=== PATIENT | male | born 1960 | race Two or more races ===

== ENCOUNTER 2024-04-27 18:29 | Inpatient (IN) | payer MEDICAID, OTHER ==
[~2024-04-27] VITALS: Ht 167.6 cm; Wt 67.3 kg
[2024-04-27] MEDS ORDERED: VANCOMYCIN PER PHARMACY 0 MG IV SCH (19:15)
[2024-04-27] MEDS: ACETAMINOPHEN 325 MG TAB PO ONE (19:24)
[2024-04-27] MEDS: PIPERACILLIN-TAZOB 3.375GM 100 ML IV ONE (19:24)
[2024-04-27 19:54] LABS: Basophils # (auto) 0 10 ^3/uL (0-0.2); Basophils % (auto) 0.2 % (0.0-2.0); Eosinophils # (auto) 0 10 ^3/uL (0-0.8); Eosinophils % (auto) 0.1 % (0.0-7.0); Hematocrit 28.8 % (41.0-53.0); Hemoglobin 9.9 g/dL (13.5-17.5); Lymphocytes % (auto) 4.9 % (10.0-50.0); Mean Corpuscular Hemoglobin 30.8 pg (28.0-32.0); Mean Corpuscular Hgb Conc. 34.5 g/dL (32.0-36.0); Mean Corpuscular Volume 89.3 fL (80.0-100.0); Monocytes # (auto) 1.5 10 ^3/uL (0-1.3); Monocytes % (auto) 6.9 % (0.0-12.0); Neutrophils # (auto) 18.9 10 ^3/uL (1.6-8.6); Neutrophils % (auto) 87.9 % (37.0-80.0); Red Blood Cells 3.23 10^6/uL (4.5-5.90); White Blood Cell 21.5 10^3/uL (4.4-10.8)
[2024-04-27 20:17] LABS: Alanine Aminotransferase 15 U/L (7-40); Alkaline Phosphatase 114 U/L (46-116); Anion Gap 8 (5-15); Aspartate Aminotransferase 16 U/L (13-40); BUN/Creatinine Ratio 15.8 (10.0-20.0); Blood Urea Nitrogen 25 mg/dL (9-23); Calcium 9.4 mg/dL (8.7-10.4); Carbon Dioxide 27 mmol/L (20-30); Chloride 95 mmol/L (98-107); Glucose 247 mg/dL (74-106); Potassium 4.1 mmol/L (3.5-5.1); Sodium 130 mmol/L (136-145)
[2024-04-27 20:18] LABS: Bilirubin, Total 0.7 mg/dL (0.2-1.0); Total Protein 7.8 g/dL (5.7-8.2)
[2024-04-27 20:31] LABS: Albumin 3.7 g/dL (3.2-4.8)
[2024-04-27] MEDS ORDERED: DEXTROSE (50%) 50ML SYRG IV PRN (20:45)
[2024-04-27] MEDS ORDERED: ONDANSETRON HCL 4 MG/2 ML VIAL IV PRN (20:45)
[2024-04-27] MEDS ORDERED: NITROGLYCERIN 0.4 MG SL TAB SL PRN (21:00)
[2024-04-27] MEDS ORDERED: MORPHINE SULFATE INJ 2 MG/ml SYRG IV PRN (21:00)
[2024-04-27] MEDS: VANCOMYCIN 1,500 MG in D5W 5% 250 ML IV ONE (21:28)
[2024-04-27] MEDS: SODIUM CHLORIDE 0.9% 1,000 ML IV SCH (21:29)
[2024-04-27] MEDS: PIPERACILLIN-TAZOB 3.375GM 100 ML IV SCH (22:00)
[2024-04-27] MEDS: ASCORBIC ACID 500 MG TAB PO SCH (22:07)
[2024-04-27 22:31] VITALS: PULSE 80; RESP 16; O2SAT 98
[2024-04-27 22:52] VITALS: BP 147/74; PULSE 81; PULSE 98; RESP 18; TEMP 98.1; O2SAT 98
[2024-04-27 23:14] VITALS: BP 147/74; PULSE 81; RESP 18; TEMP 98.1; O2SAT 98
[2024-04-28] VITALS (8 sets, daily range): BP systolic 130–153; BP diastolic 64–85; PULSE 73–88; RESP 18–20; TEMP 97.3–100.5; O2SAT 92–99
[2024-04-28] MEDS: ACCU-CHEK COMFORT CURVE STRIP VI SCH ×2 (00:10→18:00)
[2024-04-28] MEDS: InsuLIN REG 1unit/0.01ml Soln (100units/ml) SC SCH ×2 (00:15→18:41)
[2024-04-28 05:48] LABS: Basophils # (auto) 0 10 ^3/uL (0-0.2); Basophils % (auto) 0.2 % (0.0-2.0); Eosinophils # (auto) 0.1 10 ^3/uL (0-0.8); Eosinophils % (auto) 0.7 % (0.0-7.0); Hematocrit 24.8 % (41.0-53.0); Hemoglobin 8.8 g/dL (13.5-17.5); Lymphocytes # (auto) 1.4 10 ^3/uL (0.4-5.4); Mean Corpuscular Hemoglobin 31.3 pg (28.0-32.0); Mean Corpuscular Hgb Conc. 35.5 g/dL (32.0-36.0); Mean Corpuscular Volume 88.1 fL (80.0-100.0); Monocytes # (auto) 1.6 10 ^3/uL (0-1.3); Monocytes % (auto) 8.9 % (0.0-12.0); Neutrophils # (auto) 14.4 10 ^3/uL (1.6-8.6); Neutrophils % (auto) 82.2 % (37.0-80.0); Red Blood Cells 2.82 10^6/uL (4.5-5.90); Red Cell Distribution Width 11.6 % (11.8-14.3); White Blood Cell 17.5 10^3/uL (4.4-10.8)
[2024-04-28 06:06] LABS: Alanine Aminotransferase 13 U/L (7-40); Albumin 3.3 g/dL (3.2-4.8); Alkaline Phosphatase 95 U/L (46-116); Anion Gap 9 (5-15); Aspartate Aminotransferase 13 U/L (13-40); Blood Urea Nitrogen 29 mg/dL (9-23); Calcium 8.8 mg/dL (8.7-10.4); Carbon Dioxide 27 mmol/L (20-30); Chloride 99 mmol/L (98-107); Glucose 89 mg/dL (74-106); Potassium 3.3 mmol/L (3.5-5.1)
[2024-04-28 06:07] LABS: Bilirubin, Total 0.5 mg/dL (0.2-1.0); Total Protein 6.8 g/dL (5.7-8.2)
[2024-04-28 06:28] LABS: Sodium 135 mmol/L (136-145)
[2024-04-28] MEDS: POTASSIUM EFFERVESENT TAB 25 MEQ PO ONE (08:22)
[2024-04-28] MEDS: ASPirin 81 mg TAB PO SCH (08:23)
[2024-04-28] MEDS: MULTIPLE VITAMIN TAB PO SCH (08:23)
[2024-04-28 08:42] LABS: % Iron Saturation 16.3 % (20-55)
[2024-04-28 08:52] LABS: INR 1.16 (0.9-1.15); Partial Thromboplastin Time 32.2 SEC (24.5-34.5); Prothrombin Time 12.2 sec (9.3-11.8)
[2024-04-28 09:25] LABS: Erythrocyte Sedimentation Rate 129 mm/hr (0-20)
[2024-04-28] MEDS ORDERED: ZINC SULFATE 220mg CAP or TAB PO SCH (10:00)
[2024-04-28] MEDS: SODIUM CHLORIDE 0.9% 1,000 ML IV SCH (11:57)
[2024-04-28 12:16] LABS: Triglycerides 85 mg/dL (< 150)
[2024-04-28 12:17] LABS: LDL Cholesterol 71 mg/dL (< 100)
[2024-04-28 12:18] LABS: Cholesterol 115 mg/dL (< 200); HDL Cholesterol 26 mg/dL (40-59)
[2024-04-28] MEDS: hydrALAZINE HCL 20 MG/ML VL IV PRN (12:51)
[2024-04-28] MEDS ORDERED: DEXTROSE (50%) 50ML SYRG IV PRN (13:00)
[2024-04-28] MEDS: ACETAMINOPHEN 325 MG TAB PO PRN (16:13)
[2024-04-29] VITALS (9 sets, daily range): BP systolic 17–143; BP diastolic 54–74; PULSE 66–98; RESP 17–21; TEMP 97.3–100.1; O2SAT 93–100
[2024-04-29 04:48] LABS: Urine Amorphous Crystal FEW /hpf (None Seen); Urine Bacteria FEW /hpf (None Seen); Urine Blood 1+ /uL (Negative); Urine Clarity Turbid (Clear); Urine Color Colorless (Yellow); Urine Protein, UAD 1+ (Negative); Urine Specific Gravity 1.012 (1.001-1.035); Urine Urobilinogen Normal (Negative); Urine WBC 2 /hpf (0 - 3); Urine pH 5.5 (5.0-9.0)
[2024-04-29] MEDS: DOCUSATE SOD 100 MG CAP PO PRN (05:35)
[2024-04-29 06:30] LABS: Basophils # (auto) 0 10 ^3/uL (0-0.2); Basophils % (auto) 0.2 % (0.0-2.0); Eosinophils # (auto) 0.1 10 ^3/uL (0-0.8); Eosinophils % (auto) 0.6 % (0.0-7.0); Hematocrit 24.8 % (41.0-53.0); Hemoglobin 8.9 g/dL (13.5-17.5); Lymphocytes # (auto) 1.1 10 ^3/uL (0.4-5.4); Lymphocytes % (auto) 7.7 % (10.0-50.0); Mean Corpuscular Hemoglobin 31.3 pg (28.0-32.0); Mean Corpuscular Hgb Conc. 35.7 g/dL (32.0-36.0); Mean Corpuscular Volume 87.6 fL (80.0-100.0); Monocytes # (auto) 1.3 10 ^3/uL (0-1.3); Monocytes % (auto) 8.4 % (0.0-12.0); Neutrophils # (auto) 12.4 10 ^3/uL (1.6-8.6); Neutrophils % (auto) 83.1 % (37.0-80.0); Red Blood Cells 2.83 10^6/uL (4.5-5.90); Red Cell Distribution Width 12.1 % (11.8-14.3); White Blood Cell 14.9 10^3/uL (4.4-10.8)
[2024-04-29 06:46] LABS: Chloride 100 mmol/L (98-107); Sodium 134 mmol/L (136-145)
[2024-04-29 06:47] LABS: Anion Gap 12 (5-15); Calcium 8.7 mg/dL (8.7-10.4); Carbon Dioxide 22 mmol/L (20-30)
[2024-04-29 06:52] LABS: Blood Urea Nitrogen 30 mg/dL (9-23); Glucose 158 mg/dL (74-106); Triglycerides 106 mg/dL (< 150)
[2024-04-29 06:53] LABS: LDL Cholesterol 67 mg/dL (< 100)
[2024-04-29 06:54] LABS: Cholesterol 112 mg/dL (< 200); HDL Cholesterol 20 mg/dL (40-59)
[2024-04-29] MEDS: INSULIN LANTUS (GLARGINE) 1 /0.01ml (100units/ml) SC SCH (08:00)
[2024-04-29] MEDS: SODIUM CHLORIDE 0.9% 1,000 ML IV SCH (09:34)
[2024-04-29] MEDS ORDERED: MIDAZOLAM HCL 2MG/2ML 2ml VIAL (1mg/ml) ONE (12:30)
[2024-04-29] MEDS ORDERED: fentaNYL CITRATE 100 MCG/2 ML VL ONE (12:30)
[2024-04-29] MEDS: BUPIVACAINE 0.5% MPF INJ 30ML SDV IJ ONE (12:59)
[2024-04-29] MEDS ORDERED: ONDANSETRON HCL 4 MG/2 ML VIAL ONE (13:15)
[2024-04-29] MEDS ORDERED: PROPOFOL 10 MG/ML 20 ML IV ONE (13:16)
[2024-04-29] MEDS ORDERED: ePHEDrine SULFATE 50 MG/ML AMP ONE (13:16)
[2024-04-29] MEDS ORDERED: LIDOCAINE 2% (LOCAL ANESTH.) PF 5ml SDV ONE (13:16)
[2024-04-29] MEDS ORDERED: HYDROmorphone HCL 2 MG/ML VL/or syr IV PRN (13:45)
[2024-04-29] MEDS: ONDANSETRON HCL 4 MG/2 ML VIAL IV ONE (13:45)
[2024-04-29] MEDS: VANCOMYCIN 500 MG in D5W 5% 100 ML IV ONE (15:15)
[2024-04-29] MEDS: HYDROcodone-ACET 5/325MG TAB PO PRN (21:09)
[2024-04-30 01:00] VITALS: BP 144/74; PULSE 73; RESP 18; TEMP 99.2; O2SAT 93
[2024-04-30] MEDS: INSULIN LANTUS (GLARGINE) 1 /0.01ml (100units/ml) SC SCH (07:02)
[2024-04-30 07:26] LABS: Basophils # (auto) 0 10 ^3/uL (0-0.2); Basophils % (auto) 0.3 % (0.0-2.0); Eosinophils # (auto) 0.1 10 ^3/uL (0-0.8); Eosinophils % (auto) 0.7 % (0.0-7.0); Hematocrit 25.4 % (41.0-53.0); Hemoglobin 8.8 g/dL (13.5-17.5); Lymphocytes # (auto) 1.1 10 ^3/uL (0.4-5.4); Lymphocytes % (auto) 9.4 % (10.0-50.0); Mean Corpuscular Hemoglobin 30.6 pg (28.0-32.0); Mean Corpuscular Hgb Conc. 34.7 g/dL (32.0-36.0); Mean Corpuscular Volume 88.1 fL (80.0-100.0); Monocytes # (auto) 1.3 10 ^3/uL (0-1.3); Monocytes % (auto) 11.2 % (0.0-12.0); Neutrophils # (auto) 9.2 10 ^3/uL (1.6-8.6); Neutrophils % (auto) 78.4 % (37.0-80.0); Nucleated Red Blood Cells % 0.1 %; Red Blood Cells 2.89 10^6/uL (4.5-5.90); Red Cell Distribution Width 11.9 % (11.8-14.3); White Blood Cell 11.7 10^3/uL (4.4-10.8)
[2024-04-30 07:39] LABS: Anion Gap 9 (5-15); Carbon Dioxide 24 mmol/L (20-30); Chloride 102 mmol/L (98-107); Sodium 135 mmol/L (136-145)
[2024-04-30 07:40] LABS: Calcium 8.6 mg/dL (8.7-10.4)
[2024-04-30 07:45] LABS: BUN/Creatinine Ratio 11.2 (10.0-20.0); Blood Urea Nitrogen 26 mg/dL (9-23); Glucose 204 mg/dL (74-106)
[2024-04-30 08:54] VITALS: BP 134/59; PULSE 94; RESP 18; TEMP 98; O2SAT 94
[2024-04-30] MEDS: VANCOMYCIN 500 MG in D5W 5% 100 ML IV ONE (10:42)
[2024-04-30] MEDS: MULTIPLE VITAMINS W/ MINERALS TAB PO SCH (10:42)
[2024-04-30] MEDS: SODIUM CHLORIDE 0.9% 1,000 ML IV SCH (10:43)
[2024-04-30] MEDS: amLODIPine BESYLATE 5 MG TAB PO SCH (10:44)
[2024-04-30] MEDS: cefTRIAXone 1GM/50ML D5W 50 ML IV SCH (12:03)
[2024-04-30] MEDS: SODIUM FERR GLUC 62.5MG/5ML 110 ML IV SCH (12:46)
[2024-04-30 13:00] VITALS: BP 142/66; PULSE 94; RESP 18; TEMP 98; O2SAT 97
[2024-04-30 17:00] VITALS: BP 124/56; PULSE 91; RESP 18; TEMP 98; O2SAT 96
[2024-04-30 21:00] VITALS: BP 129/66; PULSE 84; RESP 18; TEMP 98; O2SAT 95
[2024-05-01 01:00] VITALS: BP 120/60; PULSE 79; RESP 18; TEMP 98.1; O2SAT 97
[2024-05-01] MEDS: AMPICILLIN & SULBACTAM SODIUM 3 GM in SODIUM CHL 0.9% 100 ML IV SCH (02:24)
[2024-05-01 05:00] VITALS: BP 142/65; PULSE 93; RESP 18; TEMP 97.9; O2SAT 97
[2024-05-01 06:30] LABS: Anion Gap 7 (5-15); Carbon Dioxide 27 mmol/L (20-30); Chloride 105 mmol/L (98-107); Potassium 4.6 mmol/L (3.5-5.1); Sodium 139 mmol/L (136-145)
[2024-05-01 06:31] LABS: Calcium 8.3 mg/dL (8.7-10.4)
[2024-05-01 06:36] LABS: BUN/Creatinine Ratio 11.5 (10.0-20.0); Blood Urea Nitrogen 25 mg/dL (9-23); Glucose 146 mg/dL (74-106)
[2024-05-01 06:46] LABS: Basophils # (auto) 0.1 10 ^3/uL (0-0.2); White Blood Cell 10.1 10^3/uL (4.4-10.8)
[2024-05-01 06:56] LABS: Basophils % (auto) 0.7 % (0.0-2.0); Eosinophils # (auto) 0.1 10 ^3/uL (0-0.8); Eosinophils % (auto) 1.4 % (0.0-7.0); Hematocrit 22.1 % (41.0-53.0); Hemoglobin 7.9 g/dL (13.5-17.5); Lymphocytes # (auto) 1.4 10 ^3/uL (0.4-5.4); Lymphocytes % (auto) 13.5 % (10.0-50.0); Mean Corpuscular Hemoglobin 31.6 pg (28.0-32.0); Mean Corpuscular Hgb Conc. 35.8 g/dL (32.0-36.0); Mean Corpuscular Volume 88.1 fL (80.0-100.0); Monocytes # (auto) 1.1 10 ^3/uL (0-1.3); Monocytes % (auto) 11.2 % (0.0-12.0); Neutrophils # (auto) 7.4 10 ^3/uL (1.6-8.6); Neutrophils % (auto) 73.2 % (37.0-80.0); Red Blood Cells 2.51 10^6/uL (4.5-5.90); Red Cell Distribution Width 11.9 % (11.8-14.3)
[2024-05-01 08:57] VITALS: BP 142/70; PULSE 96; RESP 16; TEMP 98.7; O2SAT 98
[2024-05-01] MEDS: amLODIPine BESYLATE 5 MG TAB PO SCH (10:00)
[2024-05-01] MEDS ORDERED: LIDOCAINE 2% (LOCAL ANESTH.) PF 5ml SDV ONE (10:08)
[2024-05-01] MEDS ORDERED: fentaNYL CITRATE 100 MCG/2 ML VL ONE (10:08)
[2024-05-01] MEDS ORDERED: ONDANSETRON HCL 4 MG/2 ML VIAL ONE (10:08)
[2024-05-01] MEDS ORDERED: PROPOFOL 10 MG/ML 20 ML IV ONE (10:08)
[2024-05-01] MEDS ORDERED: MIDAZOLAM HCL 2MG/2ML 2ml VIAL (1mg/ml) ONE (10:08)
[2024-05-01] MEDS: BUPIVACAINE 0.5% P/F INJ 10 ML VIAL ONE (10:19)
[2024-05-01] MEDS ORDERED: HYDROmorphone HCL 2 MG/ML VL/or syr IV PRN (10:45)
[2024-05-01 12:39] VITALS: BP 151/76; PULSE 85; RESP 17; TEMP 98; O2SAT 97
[2024-05-01 17:01] VITALS: BP 157/85; PULSE 93; RESP 16; TEMP 98.5; O2SAT 97
[2024-05-01] MEDS: SODIUM CHLORIDE 0.9% 1,000 ML IV SCH (17:03)
[2024-05-01 18:02] LABS: Basophils # (auto) 0.1 10 ^3/uL (0-0.2); Basophils % (auto) 0.6 % (0.0-2.0); Eosinophils # (auto) 0.1 10 ^3/uL (0-0.8); Eosinophils % (auto) 1.5 % (0.0-7.0); Hematocrit 24.8 % (41.0-53.0); Hemoglobin 8.9 g/dL (13.5-17.5); Lymphocytes # (auto) 1.2 10 ^3/uL (0.4-5.4); Lymphocytes % (auto) 13.5 % (10.0-50.0); Mean Corpuscular Hemoglobin 31.8 pg (28.0-32.0); Mean Corpuscular Hgb Conc. 35.8 g/dL (32.0-36.0); Mean Corpuscular Volume 88.6 fL (80.0-100.0); Monocytes % (auto) 11.3 % (0.0-12.0); Neutrophils # (auto) 6.5 10 ^3/uL (1.6-8.6); Neutrophils % (auto) 73.1 % (37.0-80.0); Red Cell Distribution Width 11.8 % (11.8-14.3); White Blood Cell 8.9 10^3/uL (4.4-10.8)
[2024-05-01 18:13] LABS: Anion Gap 6 (5-15); Carbon Dioxide 27 mmol/L (20-30); Chloride 106 mmol/L (98-107); Potassium 4.1 mmol/L (3.5-5.1); Sodium 139 mmol/L (136-145)
[2024-05-01 18:14] LABS: Calcium 8.5 mg/dL (8.7-10.4)
[2024-05-01 18:19] LABS: BUN/Creatinine Ratio 10.7 (10.0-20.0); Blood Urea Nitrogen 21 mg/dL (9-23); Glucose 198 mg/dL (74-106)
[2024-05-01 21:00] VITALS: BP 149/72; PULSE 91; RESP 20; TEMP 98.3; O2SAT 95
[2024-05-02 01:00] VITALS: BP 158/76; PULSE 88; RESP 20; TEMP 98; O2SAT 97
[2024-05-02 05:00] VITALS: BP 114/42; PULSE 92; RESP 22; TEMP 98.6; O2SAT 98
[2024-05-02] MEDS: INSULIN LANTUS (GLARGINE) 1 /0.01ml (100units/ml) SC SCH (05:57)
[2024-05-02 09:00] VITALS: BP 151/74; PULSE 85; RESP 22; TEMP 98; O2SAT 98
[2024-05-02 10:04] LABS: Chloride 109 mmol/L (98-107); Potassium 3.8 mmol/L (3.5-5.1); Sodium 139 mmol/L (136-145)
[2024-05-02 10:05] LABS: Anion Gap 4 (5-15); Calcium 8.4 mg/dL (8.7-10.4); Carbon Dioxide 26 mmol/L (20-30)
[2024-05-02 10:10] LABS: BUN/Creatinine Ratio 9.1 (10.0-20.0); Blood Urea Nitrogen 17 mg/dL (9-23); Glucose 117 mg/dL (74-106)
[2024-05-02 10:32] LABS: Erythrocyte Sedimentation Rate 129 mm/hr (0-20)
[2024-05-02 16:33] VITALS: BP_SYST 121; BP_SYST 133; BP_DIAS 50; BP_DIAS 71; PULSE 60; PULSE 72; RESP 12; RESP 14; TEMP 97.7; TEMP 98.8; O2SAT 92; O2SAT 98
[2024-05-03 05:00] VITALS: BP 124/57; PULSE 87; RESP 17; TEMP 98.6; O2SAT 97
[2024-05-03 06:31] LABS: Alanine Aminotransferase 14 U/L (7-40); Alkaline Phosphatase 76 U/L (46-116); Anion Gap 8 (5-15); Aspartate Aminotransferase 15 U/L (13-40); BUN/Creatinine Ratio 8.1 (10.0-20.0); Bilirubin, Total 0.2 mg/dL (0.2-1.0); Blood Urea Nitrogen 15 mg/dL (9-23); Calcium 8.3 mg/dL (8.7-10.4); Carbon Dioxide 24 mmol/L (20-30); Chloride 109 mmol/L (98-107); Glucose 73 mg/dL (74-106); Potassium 3.6 mmol/L (3.5-5.1); Sodium 141 mmol/L (136-145); Total Protein 6.3 g/dL (5.7-8.2)
[2024-05-03 08:00] VITALS: PULSE 95; RESP 18; O2SAT 95
[2024-05-03] MEDS: SODIUM CHLORIDE 0.9% 1,000 ML IV SCH (08:30)
[2024-05-03 09:00] VITALS: BP 145/76; PULSE 98; RESP 18; TEMP 98; O2SAT 96
[2024-05-03] MEDS: ONDANSETRON HCL 4 MG/2 ML VIAL IV ONE (10:22)
[2024-05-03] MEDS: BUPIVACAINE 0.5% MPF INJ 30ML SDV IJ ONE (10:22)
[2024-05-03] MEDS: BUPIVACAINE HCL 50 ML ONE (10:22)
[2024-05-03] MEDS: ceFAZolin 2 GM/D5W50ml 0 ML IV ONE (10:22)
[2024-05-03] MEDS: Ensure HIGH Protein Chocolate 8oz Bottle PO SCH (12:15)
[2024-05-03 17:00] VITALS: BP 151/77; PULSE 85; RESP 18; TEMP 98.1; O2SAT 96
[2024-05-04] VITALS (7 sets, daily range): BP systolic 127–152; BP diastolic 67–79; PULSE 88–95; RESP 17–18; TEMP 98–99.4; O2SAT 94–97
[2024-05-04 05:34] LABS: Basophils # (auto) 0.1 10 ^3/uL (0-0.2); Basophils % (auto) 0.9 % (0.0-2.0); Eosinophils # (auto) 0.1 10 ^3/uL (0-0.8); Eosinophils % (auto) 2.1 % (0.0-7.0); Hematocrit 22.9 % (41.0-53.0); Hemoglobin 8.2 g/dL (13.5-17.5); Lymphocytes # (auto) 1.1 10 ^3/uL (0.4-5.4); Lymphocytes % (auto) 17.4 % (10.0-50.0); Mean Corpuscular Hemoglobin 32.1 pg (28.0-32.0); Mean Corpuscular Hgb Conc. 35.8 g/dL (32.0-36.0); Mean Corpuscular Volume 89.7 fL (80.0-100.0); Monocytes # (auto) 0.7 10 ^3/uL (0-1.3); Monocytes % (auto) 10.1 % (0.0-12.0); Neutrophils # (auto) 4.5 10 ^3/uL (1.6-8.6); Neutrophils % (auto) 69.5 % (37.0-80.0); Red Blood Cells 2.55 10^6/uL (4.5-5.90); Red Cell Distribution Width 11.9 % (11.8-14.3); White Blood Cell 6.5 10^3/uL (4.4-10.8)
[2024-05-04 05:44] LABS: Calcium 8.4 mg/dL (8.7-10.4); Chloride 109 mmol/L (98-107); Potassium 3.7 mmol/L (3.5-5.1); Sodium 142 mmol/L (136-145)
[2024-05-04 05:45] LABS: Anion Gap 8 (5-15); Carbon Dioxide 25 mmol/L (20-30)
[2024-05-04 05:50] LABS: Blood Urea Nitrogen 16 mg/dL (9-23); Glucose 106 mg/dL (74-106)
[2024-05-04] MEDS: INSULIN LANTUS (GLARGINE) 1 /0.01ml (100units/ml) SC SCH (06:12)
[2024-05-04] MEDS: amLODIPine BESYLATE 5 MG TAB PO SCH (08:52)
[2024-05-04] MEDS ORDERED: VANCOMYCIN PER PHARMACY 0 MG IV SCH (11:15)
[2024-05-04] MEDS ORDERED: ONDANSETRON HCL 4 MG/2 ML VIAL ONE (11:34)
[2024-05-04] MEDS ORDERED: MEPERIDINE HCL (50 MG/ML) 1 ML VIAL ONE (11:34)
[2024-05-04] MEDS ORDERED: LIDOCAINE 1% INJ PF 5ML AMP ONE (11:34)
[2024-05-04] MEDS ORDERED: MIDAZOLAM HCL 2MG/2ML 2ml VIAL (1mg/ml) ONE (11:34)
[2024-05-04] MEDS ORDERED: SODIUM CHLORIDE LOCK 0 ML ONE (11:34)
[2024-05-04] MEDS ORDERED: fentaNYL CITRATE 100 MCG/2 ML VL ONE (11:34)
[2024-05-04] MEDS ORDERED: KETAMINE 50mg/ML 1ml syringe ONE (11:34)
[2024-05-04] MEDS ORDERED: PROPOFOL 10 MG/ML 20 ML IV ONE (11:34)
[2024-05-04] MEDS: amLODIPine BESYLATE 5 MG TAB PO ONE (12:51)
[2024-05-04] MEDS: VANCOMYCIN 1.75GM/350ML 350 ML IV ONE (15:43)
[2024-05-04] MEDS: ASPirin 81 mg TAB PO ONE (15:50)
[2024-05-04] MEDS: AMPICILLIN & SULBACTAM SODIUM 3 GM in SODIUM CHL 0.9% 100 ML IV SCH (20:33)
[2024-05-04] MEDS: ATORVASTATIN 20 MG TAB PO SCH (21:21)
[2024-05-05 01:00] VITALS: BP_SYST 141; PULSE 89; RESP 18; TEMP 98; O2SAT 96
[2024-05-05 05:00] VITALS: BP 121/62; PULSE 86; RESP 18; TEMP 97.9; O2SAT 95
[2024-05-05 07:31] LABS: Chloride 109 mmol/L (98-107); Sodium 144 mmol/L (136-145)
[2024-05-05 07:32] LABS: Anion Gap 7 (5-15); Calcium 8.3 mg/dL (8.7-10.4); Carbon Dioxide 28 mmol/L (20-30)
[2024-05-05] MEDS: BUPIVACAINE HCL 50 ML ONE (07:33)
[2024-05-05 07:37] LABS: Blood Urea Nitrogen 17 mg/dL (9-23); Glucose 108 mg/dL (74-106)
[2024-05-05] MEDS ORDERED: fentaNYL CITRATE 100 MCG/2 ML VL ONE (08:26)
[2024-05-05] MEDS ORDERED: MIDAZOLAM HCL 2MG/2ML 2ml VIAL (1mg/ml) ONE (08:26)
[2024-05-05 08:48] VITALS: PULSE 78; RESP 12; O2SAT 100
[2024-05-05] MEDS ORDERED: PROPOFOL 10 MG/ML 20 ML IV ONE (08:50)
[2024-05-05] MEDS ORDERED: LIDOCAINE 2% (LOCAL ANESTH.) PF 5ml SDV ONE (08:50)
[2024-05-05] MEDS: ONDANSETRON HCL 4 MG/2 ML VIAL IV ONE (09:15)
[2024-05-05] MEDS: ASPirin 81 mg TAB PO SCH (11:20)
[2024-05-05] MEDS: amLODIPine BESYLATE 5 MG TAB PO SCH (11:21)
[2024-05-05 12:33] VITALS: BP 148/82; PULSE 88; RESP 18; TEMP 98.7; O2SAT 94
[2024-05-05 17:00] VITALS: BP 145/76; PULSE 87; RESP 18; TEMP 98.6; O2SAT 97
[2024-05-05 21:00] VITALS: BP 133/73; PULSE 94; RESP 16; TEMP 98.5; O2SAT 97
[2024-05-06] VITALS (7 sets, daily range): BP systolic 115–142; BP diastolic 62–80; PULSE 59–101; RESP 15–18; TEMP 98.2–98.8; O2SAT 93–100
[2024-05-06 07:21] LABS: Basophils # (auto) 0.1 10 ^3/uL (0-0.2); Eosinophils # (auto) 0.1 10 ^3/uL (0-0.8); Mean Corpuscular Volume 89.2 fL (80.0-100.0); Monocytes # (auto) 0.6 10 ^3/uL (0-1.3)
[2024-05-06 07:23] LABS: Eosinophils % (auto) 1.8 % (0.0-7.0); Hematocrit 25.3 % (41.0-53.0); Hemoglobin 8.9 g/dL (13.5-17.5); Lymphocytes # (auto) 1.3 10 ^3/uL (0.4-5.4); Lymphocytes % (auto) 17.8 % (10.0-50.0); Mean Corpuscular Hemoglobin 31.6 pg (28.0-32.0); Mean Corpuscular Hgb Conc. 35.4 g/dL (32.0-36.0); Monocytes % (auto) 7.8 % (0.0-12.0); Neutrophils # (auto) 5.1 10 ^3/uL (1.6-8.6); Neutrophils % (auto) 71.6 % (37.0-80.0); Nucleated Red Blood Cells % 0.1 %; Red Blood Cells 2.83 10^6/uL (4.5-5.90); Red Cell Distribution Width 12.4 % (11.8-14.3); White Blood Cell 7.2 10^3/uL (4.4-10.8)
[2024-05-06 07:28] LABS: Chloride 106 mmol/L (98-107); Potassium 3.4 mmol/L (3.5-5.1); Sodium 142 mmol/L (136-145)
[2024-05-06 07:29] LABS: Anion Gap 8 (5-15); Calcium 8.5 mg/dL (8.7-10.4); Carbon Dioxide 28 mmol/L (20-30)
[2024-05-06 07:34] LABS: BUN/Creatinine Ratio 6.4 (10.0-20.0); Blood Urea Nitrogen 13 mg/dL (9-23); Glucose 85 mg/dL (74-106)
[2024-05-06] MEDS ORDERED: POTASSIUM EFFERVESENT TAB 25 MEQ GT ONE (08:15)
[2024-05-06] MEDS ORDERED: ATOR20TA50 PO (11:30)
[2024-05-06] MEDS ORDERED: AUG875T PO (11:30)
[2024-05-06] MEDS ORDERED: INSU-1639 XX (11:30)
[2024-05-06] MEDS ORDERED: AML5T PO (11:30)
[2024-05-06] MEDS ORDERED: INSU100I2 SC ×2 (11:30→11:42)
[2024-05-06] MEDS ORDERED: INSU100I64 SC (11:30)
[2024-05-06] MEDS: POTASSIUM EFFERVESENT TAB 25 MEQ PO ONE (12:30)
[2024-05-07] VITALS (7 sets, daily range): BP systolic 121–148; BP diastolic 65–82; PULSE 54–91; RESP 16–18; TEMP 97.9–98.9; O2SAT 90–98
== END 2024-05-07 18:15 | disposition home or self-care (01) | DRG 710 ==
LOC: ER 18:29 → EDBD 18:29 → OVERFLOW 21:02 → CENTRAL 22:47
PROVIDERS: ADMIT Internal Medicine; ATTEND Internal Medicine
PROC: 0Y6R0Z0 Detachment at Right 2nd Toe, Complete, Open Approach (ICD-10-PCS; 2024-04-29)
PROC: 0QBN0ZX Excision of Right Metatarsal, Open Approach, Diagnostic (ICD-10-PCS; principal; 2024-04-29 12:42)
PROC: 0JBQ0ZZ Excision of Right Foot Subcutaneous Tissue and Fascia, Open Approach (ICD-10-PCS; 2024-05-01)
PROC: 0JBQ0ZZ Excision of Right Foot Subcutaneous Tissue and Fascia, Open Approach (ICD-10-PCS; 2024-05-05)
DX: A41.9 Sepsis, unspecified organism (principal); N17.0 Acute kidney failure with tubular necrosis; E44.1 Mild protein-calorie malnutrition; L03.116 Cellulitis of left lower limb; E87.1 Hypo-osmolality and hyponatremia; E11.22 Type 2 diabetes mellitus with diabetic chronic kidney disease; D63.8 Anemia in other chronic diseases classified elsewhere; E11.40 Type 2 diabetes mellitus with diabetic neuropathy, unspecified; D50.9 Iron deficiency anemia, unspecified; E87.6 Hypokalemia; N18.30 Chronic kidney disease, stage 3 unspecified; E11.65 Type 2 diabetes mellitus with hyperglycemia; E11.51 Type 2 diabetes mellitus with diabetic peripheral angiopathy without gangrene; E11.69 Type 2 diabetes mellitus with other specified complication; Z68.23 Body mass index [BMI] 23.0-23.9, adult; M86.8X7 Other osteomyelitis, ankle and foot; Z79.4 Long term (current) use of insulin; Z79.899 Other long term (current) drug therapy
CPT/HCPCS: 36415; 73700; 73718; 76775; 80048; 80053; 80061; 80202; 81001; 82270; 82962; 83036; 83540; 83550; 83605; 83880; 84443; 84484; 85025; 85610; 85652; 85730; 86141; 86850; 86900; 86901; 87040; 87070; 87075; 87077; 87186; 87205; 93925; 93971; 96365; 96366; 96367; G0378; J1815; J2001; J2250; J2405; J2543; J2704; J3490; J7060

== ENCOUNTER 2025-07-01 15:16 | Emergency (ER) | payer MEDICAID, OTHER ==
[~2025-07-01] VITALS: Ht 167.6 cm; Wt 72.7 kg
[~2025-07-01 15:16] MED LIST: AML5T PO; ATOR20TA50 PO; AUG875T PO; INSU-1639 XX; INSU100I2 SC; INSU100I64 SC
--- NOTE | 2025-07-01 15:28 | ED.PDOC ---
SOB-HPI HPI Comments This is a 64 year old male THOMASA presenting to the ED with chief complaint of SOB. EMS reports patient is coming from [place] with symptoms of SOB with associated lower extremity swelling for the past few days. EMS relays patient takes no medication and has no medical history. Patient denies any chest pain, dizziness, cough, numbness, weakness, or fever. Time Seen by MD: 15:25 Reviewed notes: Nurses Notes, Physical Therapy Attendant Notes, Medications, Allergies Information Source: Patient, Emergency Med Personnel Mode of Arrival: EMS Severity: Moderate Timing: Days Duration: Since onset Context: At Rest PE Risk Factors: None History of: None Prehospital treatment: None Associated Signs and Symptoms: Leg Swelling Past Medical History PAST MEDICAL HISTORY: DM Surgical History: Denies all surgeries Family History Family History: Reviewed,noncontributory to illness, No family hx of Cancer, No family hx of DM, No family hx of Heart linwood, No family hx of HTN, No family hx ofKidney linwood, No family hx of Liver linwood, No family hx of Lung linwood, No family hx of Stroke Social History Smoker: Non-Smoker Alcohol: Denies ETOH Use Drugs: Denies Drug Use Lives In: Home Constitutional: denies: chills, diaphoresis, fatigue, fever, malaise, sweats, weakness, others EENTM: denies: blurred vision, double vision, ear bleeding, ear discharge, ear drainage, ear pain, ear ringing, eye pain, eye redness, hearing loss, mouth pain, mouth swelling, nasal discharge, nose bleeding, nose congestion, nose pain, photophobia, tearing, throat pain, throat swelling, voice changes, others Respiratory: reports: shortness of breath; denies: cough, hemoptysis, orthopnea, SOB at rest, SOB with excertion, stridor, wheezing, others Cardiovascular: reports: edema; denies: chest pain, dizzy spells, diaphoresis, Dyspnea on exertion, irregular heart beat, left arm pain, lightheadedness, palpitations, PND, syncope, others Gastrointestinal: denies: abdomen distended, abdominal pain, blood streaked bowels, constipated, diarrhea, dysphagia, difficulty swallowing, hematemesis, melena, nausea, poor appetite, poor fluid intake, rectal bleeding, rectal pain, vomiting, others Genitourinary: denies: burning, dysuria, flank pain, frequency, hematuria, incontinence, penile discharge, penile sore, pain, testicle pain, testicle swelling, urgency, others Neurological: denies: dizziness, fainting, headache, left sided numbness, left sided weakness, numbness, paresthesia, pre-existing deficit, right sided numbness, right sided weakness, seizure, speech problems, tingling, tremors, weakness, others Musculoskeletal: denies: back pain, gout, joint pain, joint swelling, muscle pain, muscle stiffness, neck pain, others Integumetry: denies: bruises, change in color, change in hair/nails, dryness, laceration, lesions, lumps, rash, wounds, others Allergic/Immunocompromised: denies: Difficulty Healing, Frequent Infections, Hives, Itching, others Hematologic/Lymphatic: denies: anemia, blood clots, easy bleeding, easy bruising, swollen glands, others Endocrine: denies: excessive hunger, excessive sweating, excessive thirst, excessive urination, flushing, intolerance to cold, intolerance to heat, unexplained weight gain, unexplained weight loss, others Psychiatric: denies: anxiety, bipolar disorder, depression, hopeless, panic disorder, schizophrenia, sleepless, suicidal, others All Other Systems: Reviewed and Negative Physical Exam General Appearance: No Apparent Distress, Normal HEENT: Normal ENT Inspection, Pharynx Normal, TMs Normal Neck: Full Range of Motion, Non-Tender, Normal, Normal Inspection Respiratory: Chest Non-Tender, Lungs Clear, No Accessory Muscle Use, No Respir atory Distress, Normal Breath Sounds Cardiovascular: No Edema, No JVD, No Murmur, No Gallop, Normal Peripheral Pulses, Regular Rate/Rhythm Breast Exam: Deferred Gastrointestinal: No Organomegaly, Non Tender, No Pulsatile Mass, Normal Bowel Sounds, Soft Genitalia: Deferred Pelvic: Deferred Rectal: Deferred Extremities: Leg edema (Bilateral 2+ lower extremity pitting edema), No calf tenderness, Normal capillary refill, Normal range of motion Musculoskeletal : Apperance: Normal Neurologic: Alert, hospice clinical supervisor II-XII nml as Tested, No Motor Deficits, Normal Affect, Normal Mood, No Sensory Deficits Cerebellar Function: Normal Reflexes: Normal Skin: Dry, Normal Color, Warm Lymphatic: No Adenopathy Was a procedure done? Was a procedure done?: No Differential Dx Differential Diagnosis: Asthma, Bronchitis, CHF, COPD, Pneumonia X-Ray, Labs, Meds, VS Vital Signs Date Time Temp Pulse Resp B/P (MAP) Pulse Ox O2 Delivery O2 Flow Rate FiO2 07/01/25 22:42 98.6 94 13 160/72 (101) 97 98.6 07/01/25 21:30 88 13 152/67 (95) 97 07/01/25 20:00 90 07/01/25 19:30 98.3 89 24 147/59 (88) 97 98.3 07/01/25 18:15 201/93 07/01/25 18:00 78 12 201/93 (129) 98 07/01/25 16:37 82 07/01/25 16:00 80 16 195/86 (122) 98 07/01/25 16:00 80 16 98 Room Air* 0 21 07/01/25 16:00 81 07/01/25 15:16 98.0 79 16 222/106 98 98.0 Lab Test 07/01/25 20:01 07/01/25 17:41 07/01/25 16:45 07/01/25 16:15 Range/Units Troponin I High Sensitivity 26 10 10 </=54 ng/L Urine Color Light-yellow Yellow Urine Clarity Clear Clear Urine pH 7.0 5.0-9.0 Urine Specific [place] 1.011 1.001-1.035 Urine Protein 3+ H Negative Urine Ketones Negative Negative Urine Blood 3+ H Negative /uL Urine Nitrite Negative Negative Urine Bilirubin Negative Negative Urine Urobilinogen Normal Negative mg/dL Urine Leukocyte Esterase Negative Negative /uL Urine RBC 7 0 - 3 /hpf Urine Microscopic WBC < 1 0-3 /HPF Urine Squamous Epithelial Cells None seen <5 /hpf Urine Bacteria None seen None Seen /hpf Urine Glucose 3+ H Normal mg/dL White Blood Count 5.9 4.4-10.8 10^3/uL Red Blood Count 2.82 L 4.5-5.90 10^6/uL Hemoglobin 9.1 L 13.5-17.5 g/dL Hematocrit 25.4 L 41.0-53.0 % Mean Corpuscular Volume 90.3 80.0-100.0 fL Mean Corpuscular Hemoglobin 32.4 H 28.0-32.0 pg Mean Corpuscular Hemoglobin Concent 35.9 32.0-36.0 g/dL Red Cell Distribution Width 13.1 11.8-14.3 % Platelet Count 252 140-450 10^3/uL Mean Platelet Volume 8.4 6.9-10.8 fL Neutrophils (%) (Auto) 68.9 37.0-80.0 % Lymphocytes (%) (Auto) 21.4 10.0-50.0 % Monocytes (%) (Auto) 6.5 0.0-12.0 % Eosinophils (%) (Auto) 2.2 0.0-7.0 % Basophils (%) (Auto) 1.0 0.0-2.0 % Neutrophils # (Auto) 4.0 1.6-8.6 10 ^3/uL Lymphocytes # (Auto) 1.3 0.4-5.4 10 ^3/uL Monocytes # (Auto) 0.4 0-1.3 10 ^3/uL Eosinophils # (Auto) 0.1 0-0.8 10 ^3/uL Basophils # (Auto) 0.1 0-0.2 10 ^3/uL Nucleated Red Blood Cells 0.0 % Sodium Level 148 H 136-145 mmol/L Potassium Level 3.6 3.5-5.1 mmol/L Chloride Level 113 H 98-107 mmol/L Carbon Dioxide Level 25 20-31 mmol/L Anion Gap 10 5-15 Blood Urea Nitrogen 29 H 9-23 mg/dL Creatinine 1.93 H 0.700-1.30 mg/dL Glomerular Filtration Rate Calc 38 >90 mL/min BUN/Creatinine Ratio 15.0 10.0-20.0 Serum Glucose 123 H 74-106 mg/dL Calcium Level 7.8 L 8.7-10.4 mg/dL B-Type Natriuretic Peptide 202.98 0-100 pg/mL Time of 1ST Reevaluation: 16:24 Reevaluation 1ST: Unchanged Time of 2ND Reevaluation: 21:36 (The case was discussed with the [place] admitting team (HPI, physical exam, labs and diagnostic tests that were available at the time of disposition, ED course, treatment plan) on the phone. They agreed to transfer the patient to their service by ALS for further evaluation and treatment. Dr. quintanilla.---. Authorization number is--[id number]) Patient Education/Counseling: Diagnosis, Treatment Family Education/Counseling: No Family Present SEPSIS Sepsis Screen Physician Orders Chest Portable (07/01/25 15:30) Electrocardigram (07/01/25 15:30) Electrocardigram (07/01/25 16:30) Electrocardigram (07/01/25 18:30) Head Without Contrast (07/01/25 18:17) Imaging Transfer Request (07/01/25 21:23) Vital Signs Date Time Temp Pulse Resp B/P (MAP) Pulse Ox O2 Delivery O2 Flow Rate FiO2 07/01/25 22:42 98.6 94 13 160/72 (101) 97 98.6 07/01/25 21:30 88 13 152/67 (95) 97 07/01/25 20:00 90 07/01/25 19:30 98.3 89 24 147/59 (88) 97 98.3 07/01/25 18:15 201/93 07/01/25 18:00 78 12 201/93 (129) 98 07/01/25 16:37 82 07/01/25 16:00 80 16 195/86 (122) 98 07/01/25 16:00 80 16 98 Room Air* 0 21 07/01/25 16:00 81 07/01/25 15:16 98.0 79 16 222/106 98 98.0 Laboratory Tests Test 07/01/25 16:15 White Blood Count 5.9 10^3/uL (4.4-10.8) Departure 1 Departure Time of Disposition: 21:34 Impression: Primary Impression: Hypertensive crisis Additional Impressions: Anemia Dyspnea Disposition: 02 SHORT TERM HOSPITAL Admit to: [facility] Condition: Guarded Discharged With: Self Critical Care Note Critical Care Time?: Yes (45 min-critical care time only) Stability Stability form required: No Heart Score Heart Score: Heart Score Response (Comments) Value History Highly Suspicious 2 EKG Normal 0 Age >65 2 Risk Factors 1 or 2 risk factors 1 Troponin Normal limit 0 Total 5 I personally scribed for NACHO STAFFORD MD ([email or web address]) on 07/01/25 at 15:28. Electronically submitted by Ruzi Aiken ([email or web address]). NACHO STAFFORD MD Jul 01, 2025 15:28 LONA NGUYỄN DO Jul 01, 2025 21:38
[2025-07-01 16:00] VITALS: PULSE 80; RESP 16; O2SAT 98
[2025-07-01 16:32] LABS: Hematocrit 25.4 % (41.0-53.0); Hemoglobin 9.1 g/dL (13.5-17.5); Mean Corpuscular Hemoglobin 32.4 pg (28.0-32.0); Mean Corpuscular Volume 90.3 fL (80.0-100.0); Nucleated Red Blood Cells % 0.0 %
[2025-07-01 16:42] LABS: Potassium 3.6 mmol/L (3.5-5.1)
[2025-07-01 16:43] LABS: Anion Gap 10 (5-15); Carbon Dioxide 25 mmol/L (20-31); Chloride 113 mmol/L (98-107); Sodium 148 mmol/L (136-145)
[2025-07-01 16:48] LABS: BUN/Creatinine Ratio 15.0 (10.0-20.0); Blood Urea Nitrogen 29 mg/dL (9-23); Glucose 123 mg/dL (74-106)
[2025-07-01 16:49] LABS: Calcium 7.8 mg/dL (8.7-10.4)
--- NOTE | 2025-07-01 17:01 | DVH ---
EXAM: XY CHEST PORTABLE HISTORY: sob COMPARISON: None TECHNIQUE: Portable upright AP view of the chest was performed. FINDINGS: No pneumothorax, consolidative infiltrates, or pulmonary edema. The heart is not enlarged. IMPRESSION: No acute intrathoracic process.
[2025-07-01 17:32] LABS: Urine Protein, UAD 3+ (Negative)
[2025-07-01] MEDS: hydrALAZINE HCL 20 MG/ML VL IV ONE (18:15)
--- NOTE | 2025-07-01 18:54 | DVH ---
EXAM: CT HEAD WITHOUT CONTRAST INDICATION: htn, headache TECHNIQUE: CT images of the head were obtained without administration of IV contrast. CT scans at [facility] use dose modulation, iterative reconstruction, and/or weight based dosing when appropriate to reduce radiation dose to as low as reasonably achievable. COMPARISON: None FINDINGS: PARENCHYMA: No acute hemorrhage. There is no mass effect, midline shift, or herniation. There is pres ervation of the zaldivar white differentiation. Senescent basal ganglia calcifications. VENTRICLES: No hydrocephalus. EXTRA-AXIAL SPACES: No extra-axial fluid collections. OTHER: The bony structures are intact. Visualized portions of the paranasal sinuses and mastoid air cells are clear. IMPRESSION: 1. No CT evidence of an acute intracranial abnormality.
[2025-07-01 22:42] VITALS: BP 160/72; PULSE 94; RESP 13; TEMP 98.6; O2SAT 97
--- NOTE | 2025-07-06 08:07 | ECG ---
[facility] Test Date: 2025-07-01 Test Time: 16:37:51 Pat Name: CONNOR COLORADO Department: ER Room: Gender: M Dinkey Driver: : 1960 Requested By: NACHO STAFFORD Order Number: [id number] Reading MD: Simón Rosado Measurements Intervals [place]aly Rate: 82 P: 89 CA: 147 QRS: 84 QRSD: 83 T: 50 QT: 406 QTc: 475 Interpretive Statements Sinus rhythm Borderline right axis deviation Abnormal R-wave progression, early transition Minimal ST depression, inferior leads Electronically Signed On 07-06-2025 15:07:12 PDT by Simón Rosado Please click the below link to view image of tracing.
== END 2025-07-01 22:35 | disposition short-term general hospital (02) ==
LOC: ER 15:16 → EDBD 15:16 → EDUNIT# 15:16 → ER 22:35
DX: D64.9 Anemia, unspecified (principal); I16.9 Hypertensive crisis, unspecified; R06.00 Dyspnea, unspecified; E11.9 Type 2 diabetes mellitus without complications; I10 Essential (primary) hypertension
CPT/HCPCS: 36415; 70450; 71045; 80048; 81001; 83880; 84484; 85025; 93005; 96374; 99285; J0360; 99291